=== PATIENT | female | born 1990 | race American Indian/Alaskan Native ===

== ENCOUNTER 2016-05-05 10:30 | Outpatient (CLI) | payer OTHER ==
--- NOTE | 2016-05-05 12:04 | Mammography Report ---
RIGHT DIGITAL DIAGNOSTIC MAMMOGRAM with CAD and RIGHT BREAST ULTRASOUND: 05/05/16 10:30:00 CLINICAL: Right mastodynia. She describes the pain as occurring off and on. COMPARISON:None. FINDINGS: The breast is predominantly fatty with scattered fibroglandular densities.No mass, architectural distortion or suspicious calcifications. Ultrasound of the right breast (including all four quadrants and the retroareolar area) was performed and demonstrated normal fibroglandular and fatty structures. No mass, cyst or shadowing. IMPRESSION: Negative mammogram and negative right breast ultrasound. BI-RADS CATEGORY: 1 - - Negative RECOMMENDATION: Clinical followup and routine mammographic screening based on ACS guidelines. ACR BI-RADS MAMMOGRAPHIC CODES: 0 = Needs additional imaging evaluation; 1 = Negative; 2 = Benign; 3 = Probably benign; 4 = Suspicious; 5 = Malignant; 6 = Known biopsy-proven malignancy COMMENT: 1. Dense breast tissue, i.e., adenosis, fibrocystic changes, etc., may obscure an underlying neoplasm. 2. Approximately 10% of cancers are not detected with mammography. 3. A negative mammography report should not delay biopsy if a clinically suspicious mass is present. COMMENT: Patient follow-up letters are generated by our [employer] application.
== END 2016-05-05 10:31 | disposition home or self-care (01) ==
LOC: SPVWC 10:30
PROVIDERS: ATTEND Physician Assistant Medical
DX: N64.4 Mastodynia (principal)
CPT/HCPCS: 76641; G0206